=== PATIENT | female | born 1960 | race Caucasian/White ===

== ENCOUNTER → 2023-08-04 10:31 | Outpatient (REF) | payer OTHER, SELFPAY | LOC: WDC 10:31 | PROVIDERS: ATTENDING PHYSICIAN Obstetrics & Gynecology; FAMILY PHYSICIAN Physician Assistant Medical | DX: Z12.31 Encounter for screening mammogram for malignant neoplasm of breast (principal) | CPT/HCPCS: 77063; 77067 ==

== ENCOUNTER 2023-09-21 13:06 | Outpatient (RCR) | payer OTHER, SELFPAY | END 2023-09-28 23:59 | disposition home or self-care (01) | LOC: RPT 13:06 | PROVIDERS: ATTENDING PHYSICIAN Orthopaedic Surgery; FAMILY PHYSICIAN Physician Assistant Medical | DX: M18.12 Unilateral primary osteoarthritis of first carpometacarpal joint, left hand (principal); Z47.89 Encounter for other orthopedic aftercare (principal); M79.642 Pain in left hand; Z73.6 Limitation of activities due to disability | CPT/HCPCS: 97010; 97018; 97110; 97530 ==

== ENCOUNTER → 2023-12-11 14:25 | Outpatient (REF) | payer OTHER, SELFPAY | LOC: HWRAD 14:25 | PROVIDERS: ATTENDING PHYSICIAN Nurse Practitioner; FAMILY PHYSICIAN Physician Assistant Medical | DX: N39.46 Mixed incontinence (principal); R35.0 Frequency of micturition | CPT/HCPCS: 76770; 76856 ==

== ENCOUNTER 2024-01-18 11:55 | Outpatient (RCR) | payer OTHER, SELFPAY | END 2024-01-18 23:59 | disposition home or self-care (01) | LOC: RPT 11:55 | PROVIDERS: ATTENDING PHYSICIAN Nurse Practitioner; FAMILY PHYSICIAN Physician Assistant Medical | DX: N39.46 Mixed incontinence (principal); R33.9 Retention of urine, unspecified; N31.9 Neuromuscular dysfunction of bladder, unspecified; Z73.6 Limitation of activities due to disability | CPT/HCPCS: 97110; 97112; 97163; 97530 ==

== ENCOUNTER 2024-03-03 14:59 | Outpatient (RCR) | payer OTHER, SELFPAY | END 2024-03-03 23:59 | disposition home or self-care (01) | LOC: RPT 14:59 | PROVIDERS: ATTENDING PHYSICIAN Nurse Practitioner; FAMILY PHYSICIAN Physician Assistant Medical | DX: N39.46 Mixed incontinence (principal); N32.0 Bladder-neck obstruction; R39.14 Feeling of incomplete bladder emptying; N31.9 Neuromuscular dysfunction of bladder, unspecified; Z73.6 Limitation of activities due to disability | CPT/HCPCS: 97110; 97140; 97530 ==

== ENCOUNTER 2024-03-31 15:02 | Outpatient (RCR) | payer OTHER, SELFPAY | END 2024-03-31 23:59 | disposition home or self-care (01) | LOC: RPT 15:02 | PROVIDERS: ATTENDING PHYSICIAN Nurse Practitioner; FAMILY PHYSICIAN Physician Assistant Medical | DX: N39.46 Mixed incontinence (principal); N32.0 Bladder-neck obstruction; R39.14 Feeling of incomplete bladder emptying; N31.9 Neuromuscular dysfunction of bladder, unspecified; Z73.6 Limitation of activities due to disability | CPT/HCPCS: 97110; 97140; 97530 ==

== ENCOUNTER 2024-04-06 16:34 | Emergency (ER) | payer OTHER, SELFPAY ==
[2024-04-06 16:38] VITALS: BP 132/55; BMI 29.0
[2024-04-06 16:40] VITALS: BP 132/55
[2024-04-06 17:00] VITALS: BP 136/63
--- NOTE | 2024-04-06 17:01 | ED.GENMED ---
History of Present Illness
General
Chief Complaint: Musculo-Skeletal Complaint
Time Seen by Provider: 04/06/24 16:36
History of Present Illness
History of Present Illness:
83-year-old female presents to the emergency department for evaluation of right hip pain after falling down her stairs. She denies a head strike. Does have a history of MS but does not use any assistive devices for ambulation. Pain is
predominantly to the right hip, contrary to nursing documentation there is no obvious shortening or external rotation of the hip. She does have mild low back discomfort, denies any headache, neck pain, or chest pain.
Past History
Past History
ED Past Medical History: GERD and Other (MS)
ED Past Surgical History: Orthopedic (shoudler) and Other (wisdom teeth)
Social History
Personal:
Living: with family
Review of Systems
Review of Systems
Allergies reviewed?: Yes
All Other Systems: ROS reviewed and negative except as documented in HPI and ROS
Phy Exam
Physical Exam
Physical Exam:
GEN: Well appearing, NAD, WDWN
HEENT: Oral mucosa moist, no scleral icterus
Cardiac: Regular rate
Lung: No respiratory distress, no tachypnea
MSK: No gross deformity or injuries. Mild tenderness to the right lateral hip, range of motion about the hip is normal. No midline low back tenderness
Skin: Good color, no pallor or jaundice, no rashes
Neuro: AO x3, moves all extremities freely
Psych: Calm, cooperative
Course
Orders/Labs/Results
Orders:
Orders
04/06/24 17:00
HYDROmorphone [Dilaudid] 0.5 mg IV NOW STA
CR Hip - RT w/wo Pel 2-3 Vw* Urgent
Comment:
Reason For Exam: fall injury
Include a pelvis x-ray?: Yes
04/06/24 17:10
Complete Blood Count/With Diff Urgent
Comprehensive Metabolic Panel Urgent
04/06/24 17:51
Ketorolac [Toradol] 15 mg IV NOW STA
Abnormal Lab Results
04/06/24
17:10
Plt Count 127 L 10^3/uL
(130-400)
MPV 12.8 H fL
(7.4-10.4)
Lymphocytes % 18.8 L %
(20.5-51.1)
BUN 25 H mg/dl
(7-17)
Glucose 114 H mg/dl
(70-99)
04/06/24 17:10
04/06/24 17:10
Vital Signs
Initial and Last Documented VS:
Initial Vital Signs
Temp Pulse Resp BP Pulse Ox
97.9 F 78 20 132/55 95
04/06/24 16:38 04/06/24 16:38 04/06/24 16:38 04/06/24 16:38 04/06/24 16:38
Last Documented Vital Signs
Temp Pulse Resp BP Pulse Ox
97.9 F 75 16 136/63 95
04/06/24 16:38 04/06/24 17:15 04/06/24 17:15 04/06/24 17:00 04/06/24 17:15
MDM/Problems Addressed
MDM/Problems Addressed:
Hip and pelvis x-rays are unremarkable. The patient was able to ambulate with assistance to the emergency department and reported marked improvement in her hip pain. Suitable for discharge home to outpatient follow-up
*Critical Care Note
Total Time (30-74mins, 75-104mins- exclusive of procedures): Not Applicable
ED Attending Note
-
Portions of this chart may have been created with voice recognition software.� Occasional wrong word or��sound alike� substitutions may have occurred due to the inherent limitations of voice recognition software.
Discharge Plan
Departure
Patient Disposition: Home (Routine Discharge)
Date of Disposition: 04/06/24
Time of Disposition: 17:52
Patient with high blood pressure during this ER visit?: No
Discharge Problem:
Contusion of hip, right
Instructions: Hip Pointer (DC)
Prescriptions:
No Action
ondansetron 4 MG tablet,disintegrating
4 mg PO TIDPRN PRN (Reason: nausea) Qty: 7 0RF
Referrals:
Tiki Calderon PA [Family Provider] -
Interventions
Interventions:
*Risk Screen - Suicide Last Done: 04/06/24 16:38
*General Assessment Last Done: 04/06/24 16:38
*Neglect/Abuse Screening Last Done: 04/06/24 16:38
ED- Fall Risk Assessment Last Done: 04/06/24 16:38
*ED COVID-19 Vaccine History Last Done: 04/06/24 16:38
*Nursing Disposition Last Done: 04/06/24 18:01
ED-Musculoskeletal Assessment Last Done: 04/06/24 16:44
Discharge Date and Time
Discharge Date/Time: 04/06/24 18:09
Print Language: [id number]
[2024-04-06] MEDS: DILAUDID 0.5 MG IV (17:08)
[2024-04-06 17:21] LABS: % Basophils 0.3 % (0-2); % Eosinophils 1.1 % (0-6); % Immature Granulocytes 0.1 % (0-0.5); % Lymphocytes 18.8 % (20.5-51.1); % Monocytes 8.5 % (1.7-9.3); % Neutrophils 71.2 % (42.2-75.2); Absolute Eosinophils 0.1 10^3/uL (0-0.7); Absolute Lymphocytes 1.4 10^3/uL (1.2-3.4); Absolute Monocytes 0.6 10^3/uL (0.1-0.6); Absolute Neutrophils 5.3 10^3/uL (1.4-6.5); Hematocrit 38.5 % (37.0-47.0); Hemoglobin 13.6 g/dL (12.0-16.0); Mean Corp Hgb Conc. 35.3 g/dL (33.0-37.0); Mean Corpuscular Hgb 30.3 pg (27.0-31.0); Mean Corpuscular Volume 85.7 fL (81.0-99.0); Mean Platelet Volume 12.8 fL (7.4-10.4); Nucleated Red Blood Cells % 0 %; Platelet Count 127 10^3/uL (130-400); Red Blood Cell Count 4.49 10^6/uL (4.20-5.40); Red Cell Dist. Width 13.1 % (11.5-14.5); White Blood Cell Count 7.4 10^3/uL (4.8-10.8)
[2024-04-06 17:34] LABS: ALT (SGPT) 18 U/L (0-35); AST (SGOT) 19 U/L (14-36); Albumin 4.2 g/dl (3.5-5.0); Alkaline Phosphatase 48 U/L (38-126); Blood Urea Nitrogen 25 mg/dl (7-17); Carbon Dioxide 26 mmol/L (22-30); Chloride 106 mmol/L (98-107); Estimated Creatinine Clearance 75 ml/min; Glucose 114 mg/dl (70-99); Potassium 3.9 mmol/L (3.5-5.1); Sodium 143 mmol/L (135-145); Total Bilirubin 0.3 mg/dl (0.2-1.3); Total Protein 6.5 g/dl (6.3-8.2); eGFR > 60.00
[2024-04-06] MEDS: TORADOL 15 MG IV (17:55)
== END 2024-04-06 18:09 | disposition home or self-care (01) ==
LOC: EMR 16:34
PROVIDERS: Physician Assistant; EMERGENCY PHYSICIAN Emergency Medicine; FAMILY PHYSICIAN Physician Assistant Medical
DX: S70.01XA Contusion of right hip, initial encounter (principal); W10.9XXA Fall (on) (from) unspecified stairs and steps, initial encounter; K21.9 Gastro-esophageal reflux disease without esophagitis
CPT/HCPCS: 99283; 96374; 96375; 73502; 80053; 85025

== ENCOUNTER → 2024-04-08 12:10 | Outpatient (REF) | payer OTHER, SELFPAY | LOC: HWRAD 12:10 | PROVIDERS: ATTENDING PHYSICIAN Physician Assistant Medical | DX: M25.561 Pain in right knee (principal) | CPT/HCPCS: 73564 ==

== ENCOUNTER → 2024-04-23 19:44 | Outpatient (REF) | payer OTHER, SELFPAY | LOC: MRI 19:44 | PROVIDERS: ATTENDING PHYSICIAN Physician Assistant Medical | DX: M25.561 Pain in right knee (principal) | CPT/HCPCS: 73721 ==

== ENCOUNTER 2024-04-28 15:04 | Outpatient (RCR) | payer OTHER, SELFPAY | END 2024-04-28 23:59 | disposition home or self-care (01) | LOC: RPT 15:04 | PROVIDERS: ATTENDING PHYSICIAN Nurse Practitioner; FAMILY PHYSICIAN Physician Assistant Medical | DX: N39.46 Mixed incontinence (principal); N32.0 Bladder-neck obstruction; R39.14 Feeling of incomplete bladder emptying; N31.9 Neuromuscular dysfunction of bladder, unspecified; Z73.6 Limitation of activities due to disability | CPT/HCPCS: 97014; 97110; 97112; 97140; 97530 ==

== ENCOUNTER 2024-05-12 15:55 | Outpatient (RCR) | payer OTHER, SELFPAY | END 2024-05-12 23:59 | disposition home or self-care (01) | LOC: RPT 15:55 | PROVIDERS: ATTENDING PHYSICIAN Nurse Practitioner; FAMILY PHYSICIAN Physician Assistant Medical | DX: N39.46 Mixed incontinence (principal); N32.0 Bladder-neck obstruction; R39.14 Feeling of incomplete bladder emptying; N31.9 Neuromuscular dysfunction of bladder, unspecified; Z73.6 Limitation of activities due to disability | CPT/HCPCS: 97014; 97110; 97112; 97140; 97530 ==

== ENCOUNTER 2024-06-17 15:18 | Outpatient (RCR) | payer OTHER, SELFPAY | END 2024-06-17 23:59 | disposition home or self-care (01) | LOC: RPT 15:18 | PROVIDERS: ATTENDING PHYSICIAN Nurse Practitioner; FAMILY PHYSICIAN Physician Assistant Medical | DX: N39.46 Mixed incontinence (principal); N32.0 Bladder-neck obstruction; R39.14 Feeling of incomplete bladder emptying; R31.9 Hematuria, unspecified; N31.9 Neuromuscular dysfunction of bladder, unspecified; Z73.6 Limitation of activities due to disability | CPT/HCPCS: 97110; 97530 ==

== ENCOUNTER → 2024-06-19 19:44 | Outpatient (REF) | payer OTHER, SELFPAY | LOC: MRI 19:44 | PROVIDERS: ATTENDING PHYSICIAN Specialist; FAMILY PHYSICIAN Physician Assistant Medical | DX: G35 Multiple sclerosis (principal) | CPT/HCPCS: 70551; 72141 ==

== ENCOUNTER → 2024-06-23 19:36 | Outpatient (REF) | payer OTHER, SELFPAY | LOC: MRI 19:36 | PROVIDERS: ATTENDING PHYSICIAN Specialist; FAMILY PHYSICIAN Physician Assistant Medical | DX: G35 Multiple sclerosis (principal) | CPT/HCPCS: 72146 ==

== ENCOUNTER 2024-08-12 15:01 | Outpatient (RCR) | payer OTHER, SELFPAY | END 2024-08-12 23:59 | disposition home or self-care (01) | LOC: RPT 15:01 | PROVIDERS: ATTENDING PHYSICIAN Nurse Practitioner; FAMILY PHYSICIAN Physician Assistant Medical | DX: N39.46 Mixed incontinence (principal); N32.0 Bladder-neck obstruction; R39.14 Feeling of incomplete bladder emptying; R31.9 Hematuria, unspecified; Z73.6 Limitation of activities due to disability; N31.9 Neuromuscular dysfunction of bladder, unspecified; G35 Multiple sclerosis; K59.09 Other constipation | CPT/HCPCS: 97140; 97530 ==

== ENCOUNTER 2024-12-31 09:09 | Outpatient (RCR) | payer OTHER, SELFPAY | END 2024-12-31 23:59 | disposition home or self-care (01) | LOC: ROT 09:09 | PROVIDERS: ATTENDING PHYSICIAN Orthopaedic Surgery; FAMILY PHYSICIAN Physician Assistant Medical | DX: Z47.89 Encounter for other orthopedic aftercare (principal); M18.12 Unilateral primary osteoarthritis of first carpometacarpal joint, left hand; Z73.6 Limitation of activities due to disability | CPT/HCPCS: 97018; 97110; 97140; 97166; 97535 ==

== ENCOUNTER → 2025-01-12 12:24 | Outpatient (REF) | payer OTHER, SELFPAY | LOC: HWRAD 12:24 | PROVIDERS: ATTENDING PHYSICIAN Student in an Organized Health Care Education/Training Program | DX: R07.89 Other chest pain (principal); W19.XXXA Unspecified fall, initial encounter | CPT/HCPCS: 71046; 71120 ==

== ENCOUNTER → 2025-01-13 14:28 | Outpatient (REF) | payer OTHER, SELFPAY | LOC: HWRAD 14:28 | PROVIDERS: ATTENDING PHYSICIAN Student in an Organized Health Care Education/Training Program; FAMILY PHYSICIAN Physician Assistant Medical | DX: S22.20XA Unspecified fracture of sternum, initial encounter for closed fracture (principal) | CPT/HCPCS: 71250 ==

== ENCOUNTER 2025-01-28 09:07 | Outpatient (RCR) | payer OTHER, SELFPAY | END 2025-01-28 23:59 | disposition home or self-care (01) | LOC: ROT 09:07 | PROVIDERS: ATTENDING PHYSICIAN Orthopaedic Surgery; FAMILY PHYSICIAN Physician Assistant Medical | DX: Z47.89 Encounter for other orthopedic aftercare (principal); M18.12 Unilateral primary osteoarthritis of first carpometacarpal joint, left hand; Z73.6 Limitation of activities due to disability | CPT/HCPCS: 97018; 97110; 97140 ==

== ENCOUNTER 2025-02-04 15:46 | Outpatient (RCR) | payer OTHER, SELFPAY | END 2025-02-04 23:59 | disposition home or self-care (01) | LOC: ROT 15:46 | PROVIDERS: ATTENDING PHYSICIAN Orthopaedic Surgery; FAMILY PHYSICIAN Physician Assistant Medical | DX: Z47.89 Encounter for other orthopedic aftercare (principal); M18.12 Unilateral primary osteoarthritis of first carpometacarpal joint, left hand; Z73.6 Limitation of activities due to disability | CPT/HCPCS: 97018; 97110; 97535 ==

== ENCOUNTER → 2025-05-05 12:11 | Outpatient (REF) | payer MEDICARE, OTHER, SELFPAY | LOC: HWRAD 12:11 | PROVIDERS: ATTENDING PHYSICIAN Urology; FAMILY PHYSICIAN Physician Assistant Medical | DX: N32.81 Overactive bladder (principal); M62.89 Other specified disorders of muscle; N31.9 Neuromuscular dysfunction of bladder, unspecified | CPT/HCPCS: 76770 ==